=== PATIENT | female | born 1990 | race Caucasian/White ===

== ENCOUNTER 2019-02-04 18:04 | Emergency (ER) | payer MEDICAID ==
[~2019-02-04] VITALS: Ht 154.9 cm; Wt 125.2 kg
[2019-02-04 18:33] VITALS: Ht 154.9 cm; Wt 125.2 kg
[2019-02-04 20:58] LABS: BASOPHIL % 0.4 % (0-2); PLATELET COUNT 289 x10^3mcL (130-400); RED CELL DISTRIBUTION WIDTH 13.2 % (11.5-14.5)
[2019-02-04 21:05] LABS: CALCIUM 8.6 mg/dL (8.5-10.1); CARBON DIOXIDE 26.4 mmol/L (21-32); CHLORIDE SERUM 109 mmol/L (98-107); CREATININE SERUM 0.8 mg/dL (0.6-1.0); GFR1 > 60 mL/min; GLUCOSE SERUM 122 mg/dL (74-106); SODIUM SERUM 143 mmol/L (136-145)
[2019-02-04 21:10] LABS: ALBUMIN 3.6 g/dL (3.4-5.0); ALKALINE PHOSPHATASE 88 U/L (46-116); ALT/SGPT 30 U/L (14-59); AST/SGOT 16 U/L (15-37); BILIRUBIN TOTAL 0.21 mg/dL (0.20-1.00); TOTAL PROTEIN, SERUM 7.3 g/dL (6.4-8.2)
[2019-02-04 22:24] VITALS: BP 126/72
== END 2019-02-04 22:25 | disposition home or self-care (01) ==
LOC: ED 18:04
PROVIDERS: Emergency Medicine
DX: L81.0 Postinflammatory hyperpigmentation (principal); E11.9 Type 2 diabetes mellitus without complications
CPT/HCPCS: 36415